=== PATIENT | female | born 1975 | race Caucasian/White ===

== ENCOUNTER 2017-08-09 07:37 | Inpatient (IN) | payer OTHER ==
[2017-08-06 09:54] LABS: ANION GAP 13.8 mmol/L (8-16); BLOOD UREA NITROGEN 10 mg/dL (7-26); BUN/CREATININE RATIO 13 (6-25); CALCIUM 9.7 mg/dL (8.4-10.2); CARBON DIOXIDE 24 mmol/L (22-29); CHLORIDE 108 mmol/L (98-107); EST GLOMERULAR FILTRATION RATE > 60 ML/MIN (60-); GLUCOSE 160 mg/dL (74-118); POTASSIUM 4.8 mmol/L (3.5-5.1); SODIUM 141 mmol/L (136-145)
[~2017-08-09] VITALS: Ht 172.7 cm; Wt 90.7 kg
[~2017-08-09 07:37] MED LIST: CRESTOR10 MG PO; GLIMEPIRIDE4 MG PO; LEVOTHYROXINE112 MCG PO; RAMIPRIL5 MG PO; XIGDUO PO
[2017-08-09] MEDS ORDERED: BUPIVACAINE HCL 0.5% INJ 30 ML VIAL INJ ONE (08:10)
[2017-08-09] MEDS ORDERED: BACITRACIN 50,000 UNIT VIAL ONE (08:10)
[2017-08-09] MEDS ORDERED: CEFOXITIN 1GM/ DEXTROSE 50ML 50 ML IV ONE (08:32)
[2017-08-09] MEDS ORDERED: NEOMYCIN/POLYMYX/BACITR OINT 0.9 GM PKT ONE (12:13)
[2017-08-09] MEDS ORDERED: MORPHINE SULFATE 4 MG/ML SYR IV PRN (12:45)
--- NOTE | 2017-08-09 13:36 | Operative Report ---
DATE OF PROCEDURE: August 09, 2017 PREOPERATIVE DIAGNOSES 1. Urinary stress incontinence. 2. Labial skin tag. POSTOPERATIVE DIAGNOSES 1. Urinary stress incontinence. 2. Labial skin tag. OPERATION PERFORMED 1. Lapides modified [place]. 2. Excision of labial skin tag, 2 cm in size. ANESTHESIA: General. INDICATIONS: This patient is a 42-year-old white female who has a long history of wetting her pants when she coughs and sneezes. She had a cystoscopy performed, which revealed that she leaks copious amounts of fluid immediately upon coughing. There was no evidence of malignancy. For further details, please refer to the history and physical. The procedure was done in the following fashion: DESCRIPTION OF PROCEDURE: The patient was taken to the operating room, placed under general anesthesia, and dressed and draped with Betadine in a lithotomy position. A 20-Syriac Guillen catheter was inserted. A Pfannenstiel incision was made over her previous Pfannenstiel incision. Numerous dense adhesions were encountered. After the external oblique aponeurosis was identified, I made an incision in the midline using electrocautery. Then using curved Bermudez scissors, I opened up the external oblique aponeurosis in both directions. There were numerous dense adhesions between the external oblique aponeurosis and the muscle tissue. I first elevated the superior flap using Kochers, traction, countertraction and electrocautery dissection. Then I did the same thing on the lower flap. I then the rectus and pyramidalis in the midline. Once again, there were numerous dense adhesions present. In the course of trying to separate the muscle from the peritoneum and fat, an opening was made in the peritoneum. This was closed later. The bowel appeared to be normal. Care was taken to avoid any injury to the bowel. Once this was accomplished and I could separate the rectus, I then developed planes in between the peritoneum and the retroperitoneal space and space of Retzius between the pubic bone and the rectus muscles. This was done with a combination of blunt finger dissection and electrocautery and sharp dissection. Ultimately, I had the urethra exposed and the space of Retzius opened and the pubic bone well identified. In order to maintain this exposure, I used a Davis retractor and moist laps and a malleable retractor in order to keep the bladder and abdominal content out of my view as I began looking at the urethra and the pubic bone. The anterior wall of the urethra was sutured to the pubic bone using 2 sutures of interrupted #0 Vicryl. Care was taken to avoid grabbing the Guillen catheter or rupturing the Guillen balloon. This resulted in dramatic suspension of the urethra. I then put in a 0.5-inch Silvano drain through an inferior stab wound and placed it in the space of Retzius. My next step was to remove the Davis and all the laps and closed the peritoneum with running 3-0 chromic. Care was taken to avoid injury to the bowel. Once the peritoneum was closed, I then irrigated the wound and closed the fascia with interrupted vkjqas-sg-nqesh #1 Vicryl. Care was taken to avoid grabbing the Silvano drain using the sutures. Once that was accomplished, the wound was again irrigated with sterile water and the skin closed with stalin. The Silvano drain was secured to the skin using a stitch of 3-0 nylon. Attention was then delivered to the 2-cm skin tag which was very bothersome to the patient. It was on the left side of her labia. The skin tag was mobilized using an Allis clamp. Then it was excised away using a scalpel. Hemostasis was then maintained with electrocautery and the skin closed with interrupted 3-0 chromic. Triple antibiotic ointment was applied. The patient tolerated procedure well and left the operating room in good condition with a Guillen catheter to gravity drainage. A dressing had been applied to the skin wound with Adaptic, 4 x 4's and ABDs. Estimated blood loss was about 30 mL. The patient has diabetes and hypothyroidism, and she will be managed for her medical problems postoperatively by Dr. Claude Schmitz, who is being consulted. Job#: [id number]
[2017-08-09 14:48] VITALS: BP 109/59
[2017-08-09] MEDS: SODIUM CHLORIDE 0.9% 1000ML 1,000 ML IV SCH ×2 (15:27→22:44)
[2017-08-09 16:38] VITALS: BP 107/65
[2017-08-09] MEDS ORDERED: NON-FORMULARY MEDICATION (Glimepiride 1 TAB) PO SCH (17:00)
[2017-08-09] MEDS: DOCUSATE SODIUM 100 MG CAP PO SCH (18:00)
[2017-08-09] MEDS: HYDROCODONE/APAP 7.5MG-325MG 1 EA TAB PO PRN (18:00)
[2017-08-09] MEDS ORDERED: CEFOXITIN 1GM/ DEXTROSE 50ML 50 ML IV SCH (18:00)
[2017-08-09] MEDS: GLIMEPIRIDE 2 MG TAB PO SCH (18:00)
[2017-08-09] MEDS: CEFOXITIN SOD 1 GM VIAL IV SCH (18:00)
[2017-08-09] MEDS ORDERED: FENTANYL CITRATE/PF 100MCG/2 ML INJ ONE (18:28)
[2017-08-09] MEDS ORDERED: MORPHINE SULFATE INJ 10 MG/ML ONE (18:28)
[2017-08-09] MEDS ORDERED: MIDAZOLAM HCL 2 MG/2 ML VIAL ONE (18:28)
[2017-08-09] MEDS ORDERED: SEVOFLURANE INHAL SOLN 250 ML PEN BTL ONE (18:48)
[2017-08-09] MEDS ORDERED: ROCURONIUM BROMIDE 10 MG/ML 5ML VIAL ONE (18:48)
[2017-08-09] MEDS ORDERED: ACETAMINOPHEN 1000 MG/100 ML IV ONE (18:48)
[2017-08-09] MEDS ORDERED: DEXAMETHASONE SOD PHOS INJ 4 MG/ML VIAL ONE (18:48)
[2017-08-09] MEDS ORDERED: PROPOFOL IV EMULSION 10 MG/ML 20 ML VIAL ONE (18:48)
[2017-08-09] MEDS ORDERED: LIDOCAINE HCL 2% LOCAL INJ 5 ML SDV VIAL INJ ONE (18:48)
[2017-08-09] MEDS ORDERED: NEOSTIGMINE 5 MG/5ML SYR ONE (18:48)
[2017-08-09] MEDS ORDERED: GLYCOPYRROLATE INJ 1MG/ 5 ML SYR ONE (18:48)
[2017-08-09] MEDS ORDERED: LIDOCAINE HCL 2% JELLY 5 ML TUBE ONE (18:48)
[2017-08-09] MEDS ORDERED: EPHEDRINE SULFATE INJ 50 MG/10 ML SYR ONE (18:48)
[2017-08-09] MEDS ORDERED: ONDANSETRON HCL INJ 2 MG/ML VIAL ONE (18:48)
[2017-08-09 20:00] VITALS: BP 101/57
[2017-08-09] MEDS: SIMVASTATIN 20 MG TAB PO SCH (20:37)
[2017-08-09] MEDS: MORPHINE SULFATE 2 MG/ML SYR IV PRN (21:07)
[2017-08-10] VITALS (7 sets, daily range): BP systolic 92–108; BP diastolic 55–70
[2017-08-10] MEDS: CEFOXITIN SOD 1 GM VIAL IV SCH ×5 (00:42→23:19)
[2017-08-10] MEDS: HYDROCODONE/APAP 7.5MG-325MG 1 EA TAB PO PRN ×3 (04:24→18:22)
[2017-08-10] MEDS: LEVOTHYROXINE SODIUM 112 MCG TAB PO SCH (05:54)
[2017-08-10] MEDS ORDERED: SODIUM CHLORIDE 0.9% 1000ML 500 ML IV ONE (07:00)
[2017-08-10 08:18] LABS: HEMATOCRIT 33.2 % (34.2-44.1); HEMOGLOBIN 11.3 g/dL (12.0-16.0)
[2017-08-10] MEDS: SODIUM CHLORIDE 0.9% 1000ML 1,000 ML IV SCH ×2 (08:35→18:35)
[2017-08-10 08:37] LABS: ANION GAP 8.6 mmol/L (8-16); BLOOD UREA NITROGEN 11 mg/dL (7-26); BUN/CREATININE RATIO 17 (6-25); CALCIUM 8.1 mg/dL (8.4-10.2); CARBON DIOXIDE 20 mmol/L (22-29); CHLORIDE 110 mmol/L (98-107); CHOL/HDL RATIO 4.7 (3.0-3.6); CHOLESTEROL 99 MD/DL (0-199); CREATININE, SERUM 0.64 mg/dL (0.57-1.11); EST GLOMERULAR FILTRATION RATE > 60 ML/MIN (60-); GLUCOSE 120 mg/dL (74-118); HDL CHOLESTEROL 21 MG/DL (40-60); LDL CHOLESTEROL 59 MG/DL (60-130); POTASSIUM 3.6 mmol/L (3.5-5.1); SODIUM 135 mmol/L (136-145); TRIGLYCERIDES 97 MG/DL (0-149)
[2017-08-10] MEDS: DOCUSATE SODIUM 100 MG CAP PO SCH ×2 (08:45→17:45)
[2017-08-10] MEDS: FAMOTIDINE 20 MG TAB PO SCH ×2 (08:45→17:45)
[2017-08-10] MEDS: GLIMEPIRIDE 2 MG TAB PO SCH ×2 (08:45→17:45)
[2017-08-10 08:49] LABS: CHOL/HDL RATIO 4.7 (3.0-3.6)
[2017-08-10] MEDS ORDERED: ONDANSETRON HCL INJ 2 MG/ML VIAL ONE (08:58)
[2017-08-10] MEDS: MORPHINE SULFATE 2 MG/ML SYR IV PRN ×2 (09:00→23:19)
[2017-08-10] MEDS ORDERED: SIMVASTATIN 40 MG TAB PO SCH (09:00)
[2017-08-10] MEDS: RAMIPRIL 5 MG CAP PO SCH (09:00)
[2017-08-10] MEDS: ONDANSETRON HCL INJ 2 MG/ML VIAL IV PRN ×2 (09:00→23:19)
--- NOTE | 2017-08-10 14:08 | Progress Note ---
DATE: August 10, 2017 Today is the first ray status post Lapides modified Vypatwue-Ltohmlcgl-Rriqjt procedure. The patient had a glucose of this morning of 120. Hemoglobin was 11.3, hematocrit 33.2. Patient became hypotensive when they attempted to get her up and walk and go to the bathroom so they had to get her back down. She still has a substantial amount of pain. Physical examination reveals that she is alert and oriented to person, place and time. Her lungs are clear. Her heart rate is regular without murmurs, gallops or rubs. Her abdomen is soft but tender. The skin incision dressing was removed. There was a moderate amount of [place] drainage. The incision looked good. A new dressing was applied. The incision by the vagina was inspected as well and the wound from the labial skin tag is healing well as well. My plan at this time is for the patient to have additional attempts to see when she is ready to be able to stand up on her own. If she can, I will have the Guillen catheter removed tomorrow for a trial of voiding. If she is still unable to get up and move on her own, then the catheter will be left in an additional day. The catheter efflux has been clear. Job#: [id number]
[2017-08-10] MEDS: XIGDUO PO SCH (17:00)
--- NOTE | 2017-08-10 19:25 | Consultation ---
DATE OF CONSULTATION: MEDICAL CONSULTATION REQUESTING PHYSICIAN: Dr. Russell Kelley REASON FOR CONSULTATION: Medical management. CHIEF COMPLAINT: Urinary incontinence. HISTORY OF PRESENT ILLNESS: This is a 42-year-old woman who has a history of rectal pain about 6 years old. Subsequently, the patient has been having lots of urine with cough, sneezing, and laughing. Went to Dr. Wells who recommended for sling procedure. She had a modified sling/Gkguemqj-Crmodshhu-Epogru procedure yesterday, also had a labial skin tag removed. Currently, the patient's pain is about 5/10. She denies any dizziness or chest pain or shortness of breath. PAST MEDICAL HISTORY: Hypothyroidism, diabetes mellitus type 2, hypertension, hyperlipidemia, and influenza infection in July 2017, and constipation. PAST SURGICAL HISTORY: Ovarian cyst drainage, hysterectomy in May 2011, and classic laminectomy in 2012. ALLERGIES: PER ELECTRONIC MEDICAL RECORD. FAMILY HISTORY: Alzheimer's dementia in her grandfather and grandmother. Breast cancer in her aunt. COPD in her grandfather. Diabetes in her father. Ovarian cancer in her aunt. Parkinson's disease in her mother. Prostate cancer in her uncle. SOCIAL HISTORY: The patient is . She has 3 children. Occasional alcohol. No illicits or cigarettes. MEDICATIONS: Per electronic medical record. REVIEW OF SYSTEMS: Denies any dizziness or chest pain. PHYSICAL EXAMINATION VITAL SIGNS: Have been reviewed. GENERAL APPEARANCE: A tired-appearing woman resting in bed. HEENT: Anicteric. Pupils are responsive to light. No oral lesions. CARDIOVASCULAR: Normal S1 and S2. LUNGS: Moderate breath sounds. ABDOMEN: Soft and nondistended. She has tenderness in the suprapubic region with dressing in place. EXTREMITIES: No edema or calf tenderness. She has SCDs bilaterally. NEUROLOGIC: She is alert and oriented x3. She moves all extremities. SKIN: Dry. PSYCHIATRIC: Flat affect. LABS: Reviewed. MEDICATIONS: Reviewed. ASSESSMENT AND PLAN: A 42-year-old woman. 1. Stress incontinence. She is status post modified sling procedure/Hucczrwo-Cqjqsxjxy-Tqxmpk procedure. We will treat her pain. 2. Pelvic pain/postoperative pain. IV pain medication and oral medication. 3. Diabetes mellitus type 2. We will obtain hemoglobin A1c and lipid panel. 4. Hypothyroidism. Continue Synthroid. Check TSH. 5. Hyperlipidemia. Continue statin. 6. Constipation. Continue bowel regimen. 1. Prophylaxis. Continue SCDs and Pepcid. 2. Disposition. Control pain. Obtain labs. Follow up H and H. Physical therapy consultation. Job#: [id number] SAK
[2017-08-10] MEDS: SIMVASTATIN 20 MG TAB PO SCH (21:08)
[2017-08-11] VITALS: BP 110/72
[2017-08-11 04:00] VITALS: BP 117/73
[2017-08-11] MEDS: HYDROCODONE/APAP 7.5MG-325MG 1 EA TAB PO PRN ×3 (04:29→18:05)
[2017-08-11] MEDS: SODIUM CHLORIDE 0.9% 1000ML 1,000 ML IV SCH ×2 (04:44→17:00)
[2017-08-11] MEDS: LEVOTHYROXINE SODIUM 112 MCG TAB PO SCH (05:33)
[2017-08-11] MEDS: CEFOXITIN SOD 1 GM VIAL IV SCH ×3 (05:33→17:25)
[2017-08-11] MEDS: MORPHINE SULFATE 2 MG/ML SYR IV PRN (07:24)
[2017-08-11] MEDS: FAMOTIDINE 20 MG TAB PO SCH ×2 (08:00→16:41)
[2017-08-11] MEDS: GLIMEPIRIDE 2 MG TAB PO SCH ×2 (08:00→16:41)
[2017-08-11] MEDS: RAMIPRIL 5 MG CAP PO SCH (08:15)
[2017-08-11] MEDS: DOCUSATE SODIUM 100 MG CAP PO SCH ×2 (08:15→16:41)
[2017-08-11] MEDS: XIGDUO PO SCH ×2 (09:00→16:41)
[2017-08-11 10:21] VITALS: BP 117/76
--- NOTE | 2017-08-11 12:03 | Progress Note ---
DATE: August 11, 2017 at 7:33 a.m. SUBJECTIVE: Overnight pain reduced now at 4-5/10, and also overnight the patient had . REVIEW OF SYSTEMS: Denies any dizziness or chest pain. OBJECTIVE VITAL SIGNS: Reviewed. GENERAL APPEARANCE: A tired-appearing woman resting in the bed. HEENT: Anicteric. CARDIOVASCULAR: Normal S1 and S2. LUNGS: Moderate breath sounds. ABDOMEN: Soft and nondistended. Suprapubic region is tender. She has dressing in place. : She has Guillen catheter in place. EXTREMITIES: There is no edema. SKIN: Dry. PSYCHIATRIC: Flat affect. LABS: Reviewed. MEDICATIONS: Reviewed. ASSESSMENT: A 42-year-old woman with: 1. Stress incontinence, status post modified sling/Tlximwop-Ldurtyemw-Ewjczl procedure. 2. Pelvic pain/postoperative pain. 3. Diabetes mellitus, type 2. 4. Hypothyroidism. 5. Hyperlipidemia. 6. Constipation. PLAN: 1. Continue dressing. 2. Plan for Guillen catheter removal today by Dr. Harris. 3. Continue bowel regimen. 4. Continue ambulation and physical therapy. 5. Hemoglobin A1c was 6.6, LDL 59 and triglycerides 97. 6. Hemoglobin was 11.3 yesterday. 7. Add Senna to the bowel regimen. 8. Doing well, pain is controlled with medication regimen, using morphine and Narco. Job#: [id number]
[2017-08-11 14:04] VITALS: BP 114/69
--- NOTE | 2017-08-11 17:59 | Progress Note ---
DATE: August 11, 2017 The patient states she still has a substantial amount of pain, but she is able to get up and walk around the hallway. Guillen catheter has been removed this morning. There have been no episodes of incontinence. The Silvano drain had minimal drainage today and I removed it. The skin incision looks good and the incision from the labial skin tag removal looks good. My plan at this time is to watch patient overnight to see if she goes into urinary retention pr not and to find out if she is able to go home or not. She is in too much pain to go home today. Job#: [id number]
[2017-08-11 20:00] VITALS: BP 112/69
[2017-08-11] MEDS: SIMVASTATIN 20 MG TAB PO SCH (20:51)
[2017-08-12] VITALS (7 sets, daily range): BP systolic 114–118; BP diastolic 73–77
[2017-08-12] MEDS: SODIUM CHLORIDE 0.9% 1000ML 1,000 ML IV SCH ×2 (01:36→10:53)
[2017-08-12] MEDS: CEFOXITIN SOD 1 GM VIAL IV SCH ×3 (01:42→18:05)
[2017-08-12] MEDS: HYDROCODONE/APAP 7.5MG-325MG 1 EA TAB PO PRN ×4 (01:53→18:28)
[2017-08-12] MEDS: LEVOTHYROXINE SODIUM 112 MCG TAB PO SCH (05:21)
[2017-08-12 07:59] LABS: BASOPHILS % 0.3 % (0.0-1.0); EOSINOPHILS # (AUTO) 0.1 (0.0-0.4); HEMATOCRIT 30.9 % (34.2-44.1); HEMOGLOBIN 10.7 g/dL (12.0-16.0); LYMPHOCYTES # (AUTO) 1.8 (1.0-3.2); LYMPHOCYTES % 13.9 % (18.0-39.1); MEAN CORPUSCULAR HEMOGLOBIN 31.1 pg (28-32); MEAN CORPUSCULAR HGB CONC 34.6 g/dL (31-35); MEAN CORPUSCULAR VOLUME 89.8 fL (81-99); MONOCYTES # (AUTO) 0.8 (0.2-0.8); MONOCYTES % 6.3 % (4.4-11.3); NEUTROPHILS # (AUTO) 9.8 (2.1-6.9); NEUTROPHILS % 77.9 % (38.7-80.0); PLATELET COUNT 127 x10e3/uL (140-360); RED BLOOD COUNT 3.44 x10e6/uL (3.6-5.1); RED CELL DISTRIBUTION WIDTH 12.3 % (11.7-14.4)
[2017-08-12] MEDS: DOCUSATE SODIUM 100 MG CAP PO SCH ×2 (08:15→17:08)
[2017-08-12] MEDS: GLIMEPIRIDE 2 MG TAB PO SCH ×2 (08:16→17:08)
[2017-08-12] MEDS: RAMIPRIL 5 MG CAP PO SCH (08:16)
[2017-08-12] MEDS: FAMOTIDINE 20 MG TAB PO SCH ×2 (08:16→17:08)
[2017-08-12 08:20] LABS: BLOOD UREA NITROGEN 7 mg/dL (7-26); BUN/CREATININE RATIO 12 (6-25); CARBON DIOXIDE 22 mmol/L (22-29); CHLORIDE 108 mmol/L (98-107); CREATININE, SERUM 0.59 mg/dL (0.57-1.11); EST GLOMERULAR FILTRATION RATE > 60 ML/MIN (60-); GLUCOSE 107 mg/dL (74-118); SODIUM 138 mmol/L (136-145)
[2017-08-12] MEDS: XIGDUO PO SCH ×2 (09:00→17:00)
[2017-08-12] MEDS ORDERED: SENNOSIDES 8.6 MG TAB PO SCH (09:00)
--- NOTE | 2017-08-12 09:58 | Progress Note ---
DATE: August 12, 2017 TIME: 7 a.m. SUBJECTIVE: Overnight, feeling better. Guillen resumed. REVIEW OF SYSTEMS: Denies any dizziness. PHYSICAL EXAMINATION VITAL SIGNS: Reviewed. GENERAL: Tired-appearing woman, resting in bed. HEENT: Anicteric. CARDIOVASCULAR: Normal S1, S2. LUNGS: Moderate breath sounds. ABDOMEN: Soft, nondistended. She has tenderness in the suprapubic region. EXTREMITIES: No edema. SKIN: Dry. PSYCHIATRIC: Normal affect. LABS: Reviewed. MEDICATIONS: Reviewed. ASSESSMENT: This is a 42-year-old woman with: 1. Stress incontinence, status post modified sling/Rhucllap-Xbqnyxayn-Czypau procedure. 2. Pelvic pain/postoperative pain. 3. Diabetes mellitus, type 2. Hemoglobin A1c is 6.6, HDL is 59, triglycerides 97. 4. Hypothyroidism. 5. Hyperlipidemia. 6. Constipation. PLAN 1. Continue current management. 2. Continue physical therapy. 3. Patient is passing flatus, on bowel regimen, no bowel movement yet. 4. Obtain labs this morning. 5. Discharge planning. 6. Continue control of pain. Job#: [id number] PKU
[2017-08-12] MEDS ORDERED: KEFLEX500 MG PO (18:10)
[2017-08-12] MEDS ORDERED: NORCO 7.5-3251 EACH PO (18:12)
--- NOTE | 2017-08-12 19:29 | Progress Note ---
DATE: August 12, 2017 DISCHARGE PROGRESS NOTE The patient's Guillen catheter was removed yesterday and she is voiding today without difficulty. She has perfect control. She does not leak when she coughs or sneezes. She still has some pain from her incision. She is breathing without difficulty. Her abdomen is soft. Wound looks good. My plan at this time is to discharge the patient on Keflex 500 mg 1 p.o. 4 times daily, number 40 and on [place] 7.5 mg 1 p.o. q.6 hours p.r.n. pain number 40 She cane wash wound in soap and water. No sex for 2 weeks. She will have a return appointment to see me again in 2 weeks for removal of the stalin. Job#: [id number] GH
--- NOTE | 2017-08-12 22:51 | Discharge Summary ---
AGE: 42 SEX: Female. CONSULTING PHYSICIAN: Dr. Claude Schmitz OPERATIONS PERFORMED: 1. Lapides modified Jqvhswvd-Tarybzfzr-Fxqrir procedure. 2. The patient had a labial skin tag removed. ADDITIONAL DIAGNOSIS: She had labial skin tag. HISTORY OF PRESENT ILLNESS: This patient is a 42-year-old white female with a long history of urinary stress incontinence. The patient had a cystoscopy in my office, which revealed that she leaked urine immediately upon coughing and sneezing both in lithotomy and standing position. She also has history of hypothyroidism and diabetes. For further details, please refer to the history and physical. HOSPITAL COURSE: The patient came into the hospital on August 09 and had a Lapides modified Lmbfcyma-Mwjqzuesr-Qohkpm procedure, in which I sutured the anterior wall of the urethra to the pubic bone with interrupted #0 Vicryl. The patient tolerated the procedure well and left the operating room in good condition with a [place] drain and a Guillen catheter to gravity drainage. The Silvano drain was removed. She had a labial skin tag removed. The patient had the Guillen catheter removed on the 2nd postoperative day. She voided and had perfect control over micturition. She did well overnight and was ambulating without difficulty on the 3rd postoperative day and was discharged. She is being sent home on Keflex 500 mg 1 p.o. 4 times daily #40 and on [place] 7.5 mg 1 p.o. q.6h. p.r.n. pain #40. There will be no sex for 2 weeks. She can wash the wound with soap and water. She will have return appointment to see me again in 2 weeks for removal of the stalin. RAEVN ELKINS MD Job#: [id number]
== END 2017-08-12 18:35 | disposition home or self-care (01) | DRG 747 ==
LOC: OR 07:37 → MED/SURG 14:52
PROVIDERS: ADMIT Urology; ATTEND Urology
PROC: 0TSD4ZZ Reposition Urethra, Percutaneous Endoscopic Approach (ICD-10-PCS; principal; 2017-08-09 09:33)
PROC: 0UBMXZZ Excision of Vulva, External Approach (ICD-10-PCS; principal; 2017-08-09 09:33)
DX: N39.3 Stress incontinence (female) (male) (principal); I10 Essential (primary) hypertension; E03.9 Hypothyroidism, unspecified; Z79.52 Long term (current) use of systemic steroids; E11.9 Type 2 diabetes mellitus without complications; Z79.4 Long term (current) use of insulin; K59.00 Constipation, unspecified; N90.89 Other specified noninflammatory disorders of vulva and perineum; G89.18 Other acute postprocedural pain
CPT/HCPCS: 36415; 80048; 80061; 82948; 83036; 84443; 85014; 85018; 85025; 88305; 93005; J0694; J1100; J2001; J2250; J2270; J2405; J7030